=== PATIENT | female | born 1950 ===

== ENCOUNTER 2018-09-23 09:19 | Inpatient (IN) | payer OTHER ==
[~2018-09-23] VITALS: Ht 152.4 cm; Wt 65.8 kg
[~2018-09-23 09:19] MED LIST: ATENOLOL100 MG PO; CIPROFLOXACIN750 MG PO; CLONAZEPAM1 MG PO; COLACE100 MG PO; COZAAR100 MG PO; FOSAMAX70 MG PO; NEURONTIN800 MG PO; NORVASC5 MG PO; PERCOCET 5/3251 TAB PO
[2018-09-23] MEDS ORDERED: SYNTHROID75 MCG (10:38)
[2018-09-23] MEDS ORDERED: PRILOSEC OTC20 MG (10:38)
[2018-09-23] MEDS ORDERED: TENORMIN25 MG (10:38)
[2018-10-01] MEDS ORDERED: AMOX-CLAV 875-1 EACH PO (12:28)
[2018-10-01] MEDS ORDERED: GABAPENTIN800 MG PO (12:28)
[2018-10-01] MEDS ORDERED: CLONAZEPAM0.5 MG PO (12:28)
[2018-10-01] MEDS ORDERED: MEDROLPACK PO (12:28)
[2018-10-01] MEDS ORDERED: DOCUSATE SODIU100 MG PO (12:28)
[2018-10-01] MEDS ORDERED: PERCOCET 5-3251 EACH PO (12:28)
== END 2018-10-01 17:59 | DRG 455 ==
LOC: O/R 09-30 05:45 → SURG 09-30 05:45 → SURH 09-30 10:30 → SURG 09-30 18:36
PROVIDERS: ADMIT Orthopaedic Surgery Orthopaedic Surgery of the Spine
PROC: 0SG3071 Fusion of Lumbosacral Joint with Autologous Tissue Substitute, Posterior Approach, Posterior Column, Open Approach (ICD-10-PCS; 2018-09-30)
PROC: 0ST40ZZ Resection of Lumbosacral Disc, Open Approach (ICD-10-PCS; 2018-09-30)
PROC: 00NY0ZZ Release Lumbar Spinal Cord, Open Approach (ICD-10-PCS; 2018-09-30)
PROC: 07DS3ZZ Extraction of Vertebral Bone Marrow, Percutaneous Approach (ICD-10-PCS; 2018-09-30)
PROC: 0SG30AJ Fusion of Lumbosacral Joint with Interbody Fusion Device, Posterior Approach, Anterior Column, Open Approach (ICD-10-PCS; principal; 2018-09-30 10:30)
DX: M43.17 Spondylolisthesis, lumbosacral region (principal); M51.17 Intervertebral disc disorders with radiculopathy, lumbosacral region; E03.8 Other specified hypothyroidism; I10 Essential (primary) hypertension